=== PATIENT | male | born 1985 | race Caucasian/White ===

== ENCOUNTER 2018-09-10 03:31 | Emergency (ER) | payer OTHER ==
[~2018-09-10] VITALS: Ht 170.2 cm; Wt 79.5 kg
[2018-09-10] MEDS ORDERED: NORCO, ANEXSIA 5/325MG TABLET (HYDROcodone/ACETAMINOPHEN) PO ONE ×2 (06:45→09:30)
[2018-09-10] MEDS ORDERED: LIDOCAINE 1% MDV 20ML VIAL As Ordered ONE (07:12)
[2018-09-10] MEDS ORDERED: LIDOCAINE 1% MDV 20ML VIAL IM ONE (07:15)
[2018-09-10] MEDS ORDERED: LIDOCAINE 1% MDV INJ 50 ML VIAL SC ONE (07:15)
[2018-09-10 08:57] VITALS: BP 122/83
[2018-09-10] MEDS ORDERED: KEFL500C17 PO (09:03)
[2018-09-10] MEDS ORDERED: NORC1TAB7 PO (09:12)
--- NOTE | 2018-09-11 09:46 | REP ---
LEFT HAND: Five views left hand performed. There is a comminuted fracture of the tuft of the fifth distal phalanx with mild distraction of fracture fragments. I see no other evidence of acute fracture or dislocation. No intrinsic osseous pathology is seen. Electronically Signed by Rony Becerra MD 09/12/2018 01:19 P
--- NOTE | 2018-09-11 17:57 | CR ---
DATE OF CONSULTATION: 09/10/2018 CHIEF COMPLAINT: Left small finger crush injury. 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 He noticed immediate bleeding and deformity. He attempted to self-manage this for a few hours and then finally presented to the emergency department and I was consulted later this morning for evaluation and did come promptly to see him. On my examination, he had no other active complaints. PAST MEDICAL HISTORY: Denies. MEDICATIONS: Denies. ALLERGIES: Denies. SOCIAL HISTORY: He does vape. Denies problems with drug or alcohol use. PHYSICAL EXAMINATION: Awake, alert and oriented times three, well-appearing male, in no acute distress. Head is normocephalic, atraumatic. Focus examination of the left hand, there is a crush injury to the small finger fingertip distal to the distal interphalangeal joint. The proximal nail plate is avulsed and there is a laceration extending about a centimeter around the ulnar aspect of the small fingertip. There is no exposed bone and the remnant fingertip is pink and well-perfused with less than two seconds capillary refill and it is sensate in parts. X-rays of the left hand show a comminuted tuft fracture of the left small finger. ASSESSMENT: Crush injury to the left small finger as above. PLAN: After obtaining consent, I went forward with fingertip crush injury debridement, copious irrigation and closure of the laceration and I did remove the nail plate. I also repaired the partially stellate nailbed injury with chromic gut suture, reapproximating it appropriately. I did do this all with a ring block which was well-tolerated. Sterile dressings and a fingertip splint were applied and the fingertip remained fully perfused post dressing application. He will be given a dose of IV antibiotics and discharged on Keflex. I will see him tomorrow morning in the clinic for a wound check. Followup earlier as needed for any neurovascular changes in the finger or for any other significant concerns such as fevers, chills, increased pain or anything else. All of his questions were answered and he is satisfied with the treatment at this time.
== END 2018-09-10 09:36 | disposition home or self-care (01) ==
LOC: M ED 03:31
DX: S62.667B Nondisplaced fracture of distal phalanx of left little finger, initial encounter for open fracture (principal); S61.317A Laceration without foreign body of left little finger with damage to nail, initial encounter; W23.0XXA Caught, crushed, jammed, or pinched between moving objects, initial encounter; Y92.139 Unspecified place military base as the place of occurrence of the external cause; Y99.1 Military activity; Z77.098 Contact with and (suspected) exposure to other hazardous, chiefly nonmedicinal, chemicals
CPT/HCPCS: 11760; 73130; 96365; 99284; J0690